=== PATIENT | female | born 1970 | race Caucasian/White ===

== ENCOUNTER 2021-12-15 11:44 | Emergency (ER) | payer BC ==
[~2021-12-15] VITALS: Ht 172.7 cm; Wt 97.5 kg
[2021-12-15] MEDS ORDERED: FAMOTIDINE 20MG VIAL IV ONE (12:30)
[2021-12-15] MEDS ORDERED: 0.9%NACL 1000ML 1,000 ML IV SCH (12:30)
[2021-12-15 12:58] LABS: BASOPHILS % (AUTO) 0.3 % (0.0-5.0); EOSINOPHILS % (AUTO) 1.3 % (0.0-8.0); HEMATOCRIT 37.9 % (36-48); LYMPHOCYTES % (AUTO) 4.7 % (21.0-51.0); MEAN CORPUSCULAR HEMOGLOBIN 29.5 pg (27.0-33.0); MEAN CORPUSCULAR HGB CONC 32.5 g/dL (32.0-36.0); MEAN CORPUSCULAR VOLUME 90.9 fL (79-99); MONOCYTES % (AUTO) 3.4 % (3.0-13.0); NEUTROPHILS % (AUTO) 88.1 % (40.0-77.0); PLATELET COUNT (AUTO) 244 K/uL (130-400); RED BLOOD CELL COUNT(AUTO) 4.17 MIL/uL (4.00-5.50); RED CELL DISTRIBUTION WIDTH 14.4 % (11.0-15.5); WHITE BLOOD COUNT (AUTO) 14.2 K/uL (4.8-10.8)
[2021-12-15 13:01] LABS: APPEARANCE,URINE Clear (CLEAR); BILIRUBIN,URINE Negative (NEGATIVE); COLOR,URINE Yellow (YELLOW); GLUCOSE, URINE (UA) Negative (NEGATIVE); KETONES,URINE Negative (NEGATIVE); LEUKOCYTE ESTERASE ,URINE Negative (NEGATIVE); NITRATE,URINE Negative (NEGATIVE); OCCULT BLOOD,URINE Negative (NEGATIVE); PROTEIN,URINE Negative (NEGATIVE); UROBILINOGEN,URINE 0.2 mg/dL (0.2-1.0)
[2021-12-15 13:06] LABS: CREATININE 0.7 mg/dL (0.5-1.5); POTASSIUM 3.8 mmol/L (3.5-5.1)
[2021-12-15 13:11] LABS: ALBUMIN 3.4 g/dL (3.5-5.0); BILIRUBIN,TOTAL 0.6 mg/dL (0.2-1.0)
[2021-12-15 13:45] LABS: ERYTHROCYTE SEDIMENTATION RATE 17 MM/HR (0-30)
[2021-12-15] MEDS ORDERED: SOLU-MEDROL 125MG VIAL IVP ONE (14:30)
[2021-12-15] MEDS ORDERED: DiphenhydrAMINE HCL 50 MG/ML VIAL IV ONE (14:30)
[2021-12-15] MEDS ORDERED: SOLU-MEDROL 125MG VIAL ONE (14:35)
[2021-12-15] MEDS ORDERED: DiphenhydrAMINE HCL 50 MG/ML VIAL ONE (14:35)
[2021-12-15] MEDS ORDERED: FAMO-136 PO (15:13)
[2021-12-15] MEDS ORDERED: CETI1SOL17 PO (15:13)
[2021-12-15] MEDS ORDERED: PRED20TA3 PO (15:13)
[2021-12-15] MEDS ORDERED: DEXAMETHASONE 4 MG TAB ONE (15:23)
[2021-12-15] MEDS: DEXAMETHASONE 4 MG TAB PO SCH ×2 (15:45→15:59)
== END 2021-12-15 16:01 | disposition home or self-care (01) ==
LOC: EDH 11:44
DX: L50.9 Urticaria, unspecified (principal); Z88.0 Allergy status to penicillin; Z85.038 Personal history of other malignant neoplasm of large intestine; Z79.52 Long term (current) use of systemic steroids
CPT/HCPCS: 36415; 71045; 80053; 81003; 85025; 85651; 86308; 96361; 96374; 96375; 99284; J1200; J2930; J3490; J7030; J8540